=== PATIENT | female | born 1980 | race Caucasian/White ===

== ENCOUNTER 2016-09-12 14:03 | Emergency (ER) | payer OTHER ==
[2016-09-12 16:02] LABS: BASO # 0.1 K/mm3 (0.0-0.2); BASO % 0.8 % (0.0-1.0); EOS # 0.2 K/mm3 (0.0-0.50); EOS % 2.2 % (0.0-3.0); LARGE UNSTAINED CELL # 0.1 K/mm3 (0.0-0.4); LARGE UNSTAINED CELL % 1.4 % (0.0-4.0); LYMPH # 2.5 K/mm3 (1.5-4.5); LYMPH % 25.3 % (24.0-44.0); MEAN CORPUSCULAR HEMOGLOBIN 28.8 pg (27.0-33.0); MEAN CORPUSCULAR VOLUME 87.5 fl (80.0-96.0); MONO # 0.3 K/mm3 (0.0-0.8); MONO % 3.4 % (0.0-5.0); NEUTROPHILS # 6.2 K/mm3 (1.8-7.7); NEUTROPHILS % 66.9 % (36.0-66.0); PLATELET COUNT, AUTOMATED 369 k/mm3 (150-450); RED CELL DISTRIBUTION WIDTH 15.3 % (11.5-14.5); WHITE BLOOD COUNT 9.2 K/mm3 (4.0-10.0)
--- NOTE | 2016-09-12 17:03 | REP ---
Clinical: Early with vaginal bleeding. Technique: Transabdominal pelvic ultrasound followed by transvaginal examination with color Doppler evaluation of the maternal ovaries and gestation. Findings: Anteverted uterus measures 9.1 x 4.1 x 5.0 cm. An empty gestational sac is identified measuring 6 mm mean sac diameter correlating to 4 weeks 4 days gestational age. No pole or yolk sac is identified and the gestational sac was noted to be moving within the endometrial canal. Small amount of hemorrhagic debris/clot is identified in the endocervical canal. Findings are most compatible with spontaneous in progress. Maternal ovaries are normal in appearance and vascularity without torsion. Right maternal ovary measures 1.9 x 1.4 x 1.7 cm; RI equal 0.65. Left maternal ovary measures 3.2 x 2.2 x 2.2 cm with 1.2 cm corpus luteal cyst; RI equal 0.53. No pelvic fluid or adnexal mass lesion. Impression: Empty gestational sac moving within the endocervical canal along with small amount of hemorrhagic debris/clot. Findings are most compatible with spontaneous in progress. Correlation with serial HCG levels recommended. Signed by Brian Preciado MD 09/12/2016 04:55 P
--- NOTE | 2016-09-12 18:30 | EDDOCDS ---
Physician Documentation [facility] Name: Zonia Bright Age: 35 yrs Sex: Female : 1980 Arrival Date: 09/12/2016 Time: 14:03 Bed I1 / M1 Private MD: Other - Complete Info On Cds Disposition: 09/12/16 18:08 Discharged to Home/Self Care. Impression: Threatened . - Condition is Stable. - Discharge Instructions: Threatened Miscarriage, Pelvic Rest. - Medication Reconciliation, Local Pharmacy Hours form. - Follow up: [facility]; When: Tomorrow; Reason: Recheck today's complaints, Continuance of care. - Problem is new. - Symptoms have improved. - Notes: CALL [facility] TOMORROW TO SCHEDULE AN APPOINTMENT ON 09/15/16, GO TO [facility] TO HAVE HORMONE REDRAWN ON THE AFTERNOON OF 09/14/16, IF CONCERNING SYMPTOMS OR BLEEDING HEAVIER THAN I PAD PER HOUR OCCURS, RETURN TO THE ER, YOUR CASE WAS DISCUSSED WITH DR KIET AT [facility] [place] Historical: - Allergies: no known allergies; - Home Meds: 1. blood pressure medication Unknown daily - PMHx: Hypertension; - PSHx: ; - Social history: Smoking status: Patient/guardian denies using Their [place] language is Urdu. - Family history: Not pertinent. - : The pt / caregiver states he / she is not on anticoagulants. Home medication list is obtained from the patient, Unable to Verify Home Med List with the patient / caregiver. - Exposure Risk Screening:: None identified. CHANGE ADVISOR: 09/12 14:31 2, Full Term 1, Premature 0, 0, Living 1, LMP 07/21/2016, dls Verified, EDC 04/27/2017, Gestational age from LMP: 7 weeks 4 days Vital Signs: 14:06 BP 147 / 81; Pulse 68; Resp 18 S; Temp 96.2(O); Pulse Ox 100% on R/A; Weight 100.7 kg / gr2 222.01 lbs (M); Height 5 ft. 5 in. (165.10 cm) (M); Pain 3/10; 18:12 BP 140 / 73; Pulse 62; Resp 18; Temp 97.2; Pulse Ox 99% ; Pain 0/10; jam1 14:06 Body Mass Index 36.94 (100.70 kg, 165.10 cm) gr2 MDM: 15:19 Undress patient appropriately for examination ordered. ar2 15:19 Set up pelvic ordered. ar2 15:36 CBC with Diff Ordered. EDMS 15:36 Hcg, Serum Quantitative Ordered. EDMS 15:36 UA Ordered. EDMS 15:36 Urine Culture Ordered. EDMS 15:36 Rh Only Ordered. EDMS 15:36 Wet Prep Ordered. EDMS 15:36 GC & Chlamydia Amplification Ordered. EDMS 16:07 Financial registration complete. gjb 16:13 [facility] Payment Agreement was scanned into [employer] and attached to record. gjb 16:17 CBC with Diff Reviewed. ck7 16:17 Hcg, Serum Quantitative Reviewed. ck7 16:17 Rh Only Reviewed. ck7 16:17 Wet Prep Reviewed. ck7 16:17 IV Saline Lock ordered. ck7 16:17 NS 0.9% 1000 ml IV at bolus once ordered. ck7 16:18 US 1st trimester Ordered. EDMS 16:31 DUPLEX SCAN LIMITED (DOPPLER) Ordered. EDMS 16:31 TRANSVAGINAL US Ordered. EDMS 16:51 UA Reviewed. ck7 17:45 US 1st trimester Reviewed. ck7 18:06 GC & Chlamydia Amplification Reviewed. ck7 Administered Medications: 16:52 Drug: NS 0.9% 1000 ml Route: IV; Rate: bolus; Site: right forearm; [facility] Signatures: Dispatcher [employer] [place]V Jennifer Nicolas, Parth Fernandes RN, PA-C PAMariellaC ar2 Zarina Latham RN RN [facility] Anival Pugh RPA-C RPA-Leonarda Jacobs The chart was reviewed and I authenticate all verbal orders and agree with the evaluation and treatment provided.Attachments: 16:13 [facility] [place] gjb MTDD
--- NOTE | 2016-09-12 18:31 | EDDOCDS ---
Nurse's Notes [facility] Name: Zonia Bright Age: 35 yrs Sex: Female : 1980 Arrival Date: 09/12/2016 Time: 14:03 Bed I1 / M1 Private MD: Other - Complete Info On Cds Diagnosis: Threatened Presentation: 09/12 14:26 Presenting complaint: Patient states: Pt presents with red vaginal bleeding on tissue dls when she wipes started one hour ago denies abdominal cramping pt is about 8 weeks has not had any care yet. Risk factors: The patient reports no loss of conciousness prior to arrival. This patient has not had a hysterectomy. This patient has not begun menopause. Adult Sepsis Screening: The patient does not have new or worsening altered mentation. Patient's respiratory rate is less than 22. Systolic blood pressure is greater than 100. Patient has a qSOFA score of 0- Negative Sepsis Screen. Suicide/Homicide risk assessment- the patient denies having any suicidal and/or homicidal ideations and does not present with any other emotional, behavioral or mental health complaints. Status: Patient is not a health services information specialist or dependent. Transition of care: patient was not received from another setting of care. 14:26 Acuity: VIMAL Level 3 dls 14:26 Method Of Arrival: Walkin/Carried/Asstd dls Triage Assessment: 14:31 General: Appears in no apparent distress, well developed, well nourished, well groomed, dls Behavior is cooperative. Pain: Pain currently is 4 out of 10 on a pain scale. Pt Declines HIV testing. : Reports vaginal bleeding that is bright red since one hour. STEEP TENDER: 14:31 2, Full Term 1, Premature 0, 0, Living 1, LMP 07/21/2016, dls Verified, EDC 04/27/2017, Gestational age from LMP: 7 weeks 4 days Historical: - Allergies: no known allergies; - Home Meds: 1. blood pressure medication Unknown daily - PMHx: Hypertension; - PSHx: ; - Social history: Smoking status: Patient/guardian denies using Their [place] language is Yakut. - Family history: Not pertinent. - : The pt / caregiver states he / she is not on anticoagulants. Home medication list is obtained from the patient, Unable to Verify Home Med List with the patient / caregiver. - Exposure Risk Screening:: None identified. Screenin:51 Screening information is obtained from the patient. Primary language is German. Fall jam1 risk: No risks identified. Assistance ADL's: requires no assistance with activities of daily living. Abuse/DV Screen: The patient / caregiver reports he/she is: not in a situation that causes fear, pain or injury. Nutritional screening: No deficits noted. Advance Directives: Currently, there is no health care proxy. There is no active DNR order. There is no living will. There is no Power of Concession Manager. Advance directive information has not previously been placed in an [facility] medical record. Further advance directive information is declined. home support is adequate. Assessment: 16:53 General: Appears in no apparent distress, comfortable, Behavior is appropriate for age, [facility] cooperative. General: returned from ultrasound, tolerated well. : Urine is blood tinged. 17:30 General: Appears in no apparent distress, comfortable, Behavior is appropriate for age, [facility] cooperative. Pain: Denies pain. Respiratory: Airway is patent Respiratory effort is even, unlabored, Respiratory pattern is regular, symmetrical. : Reports vaginal bleeding that is moderate flow. Derm: Skin is pink, warm & dry. Vital Signs: 14:06 BP 147 / 81; Pulse 68; Resp 18 S; Temp 96.2(O); Pulse Ox 100% on R/A; Weight 100.7 kg gr2 (M); Height 5 ft. 5 in. (165.10 cm) (M); Pain 3/10; 18:12 BP 140 / 73; Pulse 62; Resp 18; Temp 97.2; Pulse Ox 99% ; Pain 0/10; jam1 14:06 Body Mass Index 36.94 (100.70 kg, 165.10 cm) gr2 Vitals: 14:06 Log In Time: September 12, 2016 at 14:06. gr2 ED Course: 14:05 Patient visited by Esmer Valverde. gr2 14:05 Other - Complete Info On Cds is Private Physician. gr2 14:05 Patient moved to Waiting gr2 14:07 Patient visited by Esmer Valverde. gr2 14:07 Patient moved to Pre RCE gr2 14:29 Triage Initiated dls 15:12 Patient moved to Triage 3 kcs 15:19 Parth Arambula PA-C is PHCP. ar2 15:19 Bozena Sargent MD is Attending Physician. ar2 15:19 Patient visited by Parth Arambula PA-C. ar2 15:20 Patient moved to I1 / M1 ct3 15:46 GC & Chlamydia Amplification Sent. jam1 15:46 Wet Prep Sent. jam1 15:46 Rh Only Sent. jam1 15:46 Urine Culture Sent. jam1 15:46 UA Sent. jam1 15:46 Hcg, Serum Quantitative Sent. jam1 15:46 CBC with Diff Sent. jam1 16:13 [facility] Payment Agreement was scanned into [employer] and attached to record. gjb 16:16 Pt greeted and oriented to ED. Patient advised of names of staff involved in care, jam1 location of call sparrow, wait times and NPO status. Patient has correct armband on for positive identification. Placed in gown. Bed in low position. Call light in reach. Side rails up X 1. Adult w/ patient. Door closed. 16:17 PHCP role handed off by Parth Arambula PA-C ck7 16:17 Anival Pugh RPA-C is PHCP. ck7 16:17 Patient visited by Anival Pugh RPA-C. ck7 16:51 Patient visited by Anival Pugh RPA-C. ck7 16:53 Patient has correct armband on for positive identification. Bed in low position. Call jam1 light in reach. Side rails up X 1. Door closed. 16:53 The patient / caregiver is instructed regarding the plan of care and ED course. [facility] 16:53 Inserted saline lock: 20 gauge in right forearm. [facility] 17:26 US 1st trimester Returned. EDMS 17:30 Discontinued lock intact, bleeding controlled, pressure dressing applied, No [facility] redness/swelling at site. No procedures done that require assistance. 17:32 Patient visited by Anival Pugh RPA-C. ck7 18:06 Patient visited by Anival Pugh RPA-C. ck7 18:08 Torsten Gonzalez OB is Referral Physician. ck7 Administered Medications: 16:52 Drug: NS 0.9% 1000 ml Route: IV; Rate: bolus; Site: right forearm; [facility] Order Results: Lab Order: CBC with Diff; SPEC'M 09/12/16 15:38 Test: WHITE BLOOD COUNT; Value: 9.2; Range: 4.0-10.0; Units: K/mm3; Status: F Test: RED BLOOD COUNT; Value: 4.93; Range: 4.00-5.40; Units: M/mm3; Status: F Test: HEMOGLOBIN; Value: 14.2; Range: 12.0-16.0; Units: g/dl; Status: F Test: HEMATOCRIT; Value: 43.1; Range: 36.0-47.0; Units: %; Status: F Test: MEAN CORPUSCULAR VOLUME; Value: 87.5; Range: 80.0-96.0; Units: fl; Status: F Test: MEAN CORPUSCULAR HEMOGLOBIN; Value: 28.8; Range: 27.0-33.0; Units: pg; Status: F Test: MEAN CORPUSCULAR HGB CONC; Value: 33.0; Range: 32.0-36.5; Units: g/dl; Status: F Test: RED CELL DISTRIBUTION WIDTH; Value: 15.3; Range: 11.5-14.5; Abnormal: Above high normal; Units: %; Status: F Test: PLATELET COUNT, AUTOMATED; Value: 369; Range: 150-450; Units: k/mm3; Status: F Test: NEUTROPHILS %; Value: 66.9; Range: 36.0-66.0; Abnormal: Above high normal; Units: %; Status: F Test: LYMPH %; Value: 25.3; Range: 24.0-44.0; Units: %; Status: F Test: MONO %; Value: 3.4; Range: 0.0-5.0; Units: %; Status: F Test: EOS %; Value: 2.2; Range: 0.0-3.0; Units: %; Status: F Test: BASO %; Value: 0.8; Range: 0.0-1.0; Units: %; Status: F Test: LARGE UNSTAINED CELL %; Value: 1.4; Range: 0.0-4.0; Units: %; Status: F Test: NEUTROPHILS #; Value: 6.2; Range: 1.8-7.7; Units: K/mm3; Status: F Test: LYMPH #; Value: 2.5; Range: 1.5-4.5; Units: K/mm3; Status: F Test: MONO #; Value: 0.3; Range: 0.0-0.8; Units: K/mm3; Status: F Test: EOS #; Value: 0.2; Range: 0.0-0.50; Units: K/mm3; Status: F Test: BASO #; Value: 0.1; Range: 0.0-0.2; Units: K/mm3; Status: F Test: LARGE UNSTAINED CELL #; Value: 0.1; Range: 0.0-0.4; Units: K/mm3; Status: F Lab Order: Hcg, Serum Quantitative; SPEC'M 09/12/16 15:38 Test: HCG, SERUM QUANTITATIVE; Value: 680; Units: MIU/ML; Status: F Test Note: ; GESTATIONAL AGE APPROXIMATE HCG RANGE (MIU/ML) 0.2-1 WEEK 5-50 1-2 WEEKS 50-500 2-3 WEEKS 100-5,000 3-4 WEEKS 500-10,000 4-5 WEEKS 1,000-50,000 5-6 WEEKS 10,000-100,000 6-8 WEEKS 15,000-200,000 2-3 MONTHS 10,000-100,000 NON FEMALES LESS THAN 3.0 Patient samples may contain human heterophilic antibodies that could react with immunoassays to give falsely elevated or depressed results. This assay has been designed to minimize interference from heterophilic antibodies. Elevated hCG levels have also been associated with trophoblastic disease and nontrophoblastic neoplasms. The possibility of having these diseases should be considered before a diagnosis of is made. This test is not intended for use as a surrogate marker for aiding in the diagnosis or monitoring the treatment of cancer patients. [employer] methodology. Lab Order: UA; SPEC'M 09/12/16 15:38 Test: APPEARANCE, URINE; Value: HAZY; Range: CLEAR; Status: F Test: COLOR, URINE; Value: YELLOW; Range: YELLOW; Status: F Test: PH,URINE; Value: 5.0; Range: 5.0-9.0; Units: UNITS; Status: F Test: SPECIFIC GRAVITY URINE AUTO; Value: 1.006; Range: 1.002-1.035; Status: F Test: PROTEIN, URINE AUTO; Value: 1+; Range: NEGATIVE; Abnormal: Above high normal; Units: mg/dL; Status: F Test: GLUCOSE, URINE (UA) AUTO; Value: NEGATIVE; Range: NEGATIVE; Units: mg/dL; Status: F Test: KETONE, URINE AUTO; Value: NEGATIVE; Range: NEGATIVE; Units: mg/dL; Status: F Test: UROBILINOGEN, URINE AUTO; Value: 0.2; Range: 0.0-2.0; Units: mg/dL; Status: F Test: BILIRUBIN, URINE AUTO; Value: NEGATIVE; Range: NEGATIVE; Status: F Test: NITRITE, URINE AUTO; Value: NEGATIVE; Range: NEGATIVE; Status: F Test: LEUKOCYTE ESTERASE, URINE AUTO; Value: NEGATIVE; Range: NEGATIVE; Status: F Test: BLOOD, URINE BLOOD; Value: 3+; Range: NEGATIVE; Abnormal: Above high normal; Status: F Test: WBC, URINE AUTO; Value: 19; Range: 0-3; Abnormal: Above high normal; Units: /HPF; Status: F Test: RBC, URINE AUTO; Value: TNTC; Range: 0-3; Abnormal: Above high normal; Units: /HPF; Status: F Test: BACTERIA, URINE AUTO; Value: 1+; Range: NEGATIVE; Abnormal: Above high normal; Status: F Test: SQUAMOUS EPITHELIAL CELL UR AU; Value: 5; Range: 0-6; Units: /HPF; Status: F Test: MUCUS, URINE; Value: SMALL; Range: NEGATIVE; Status: F Test: HYALINE CAST, URINE AUTO; Value: 0; Range: 0-1; Units: /LPF; Status: F Test: AMORPHOUS SEDIMENT; Value: SMALL; Range: NEGATIVE; Abnormal: Above high normal; Status: F Lab Order: Rh Only; SPEC'M 09/12/16 15:38 Test: RH; Value: POSITIVE; Status: F Lab Order: Wet Prep; SPEC'M 09/12/16 15:38 Test: WET PREP; Value: WET PREP RESULT; Status: F Test: WET PREP; Value: MANY RBC; Status: F Test: WET PREP; Value: FEW WBC; Status: F Test: WET PREP; Value: FEW EPITHELIAL CELLS PRESENT; Status: F Lab Order: GC & Chlamydia Amplification; SPEC'M 09/12/16 15:38 Test: CHLAMYDIA DNA AMPLIFICATION; Value: NEGATIVE; Range: NEGATIVE; Status: F Test: GC DNA AMPLIFICATION; Value: NEGATIVE; Range: NEGATIVE; Status: F Radiology Order: US 1st trimester Test: US 1st trimester REASON FOR EXAMINATION: Bleeding; Clinical: Early with vaginal bleeding.; ; Technique: Transabdominal pelvic ultrasound followed by transvaginal examination; with color Doppler evaluation of the maternal ovaries and gestation.; ; Findings:; Anteverted uterus measures 9.1 x 4.1 x 5.0 cm. An empty gestational sac is; identified measuring 6 mm mean sac diameter correlating to 4 weeks 4 days; gestational age. No pole or yolk sac is identified and the gestational sac; was noted to be moving within the endometrial canal. Small amount of hemorrhagic; debris/clot is identified in the endocervical canal. Findings are most; compatible with spontaneous in progress. Maternal ovaries are normal in; appearance and vascularity without torsion. Right maternal ovary measures 1.9 x; 1.4 x 1.7 cm; RI equal 0.65. Left maternal ovary measures 3.2 x 2.2 x 2.2 cm; with 1.2 cm corpus luteal cyst; RI equal 0.53. No pelvic fluid or adnexal mass; lesion.; ; Impression:; Empty gestational sac moving within the endocervical canal along with small; amount of hemorrhagic debris/clot. Findings are most compatible with spontaneous; in progress. Correlation with serial HCG levels recommended.; ; ; ; ; Signed by; Brian Preciado MD 09/12/2016 04:55 P; Outcome: 17:30 Discharge Assessment: Patient awake, alert and oriented x 3. No cognitive and/or [facility] functional deficits noted. Patient verbalized understanding of disposition instructions. patient administered narcotics - no. The following High Risk Discharge criteria are identified: None. Discharged to home ambulatory, with family, with significant other. Condition: good Condition: stable Condition: improved. Discharge instructions given to patient, Instructed on discharge instructions, follow up and referral plans. Demonstrated understanding of instructions, medications, Pt was receptive of discharge instructions/ teaching. Ultrasound Study completed. Property :Personal belongings accompany Pt. 18:08 Discharge ordered by Provider. ck7 18:30 Patient left the ED. [facility] Signatures: Dispatcher [employer] EDMS Amanda Flowers, RN RN Jennifer Elliott RN RN dls Murphy, Jane, PERL SOFTWARE ENGINEER PERL SOFTWARE ENGINEER jam1 Parth Arambula, PA-C PA-C ar2 Vivian Sauceda, PERL SOFTWARE ENGINEER PERL SOFTWARE ENGINEER ct3 Zarina Latham,GABI RN [facility] Anival Pugh, RPA-C RPA-Cck7 Esmer Valverde gr2 Leonarda Bearden MTDD
--- NOTE | 2016-09-14 20:34 | EDDOCDS ---
Nurse's Notes [facility] Name: Zonia Bright Age: 35 yrs Sex: Female : 1980 Arrival Date: 09/12/2016 Time: 14:03 Bed I1 / M1 Private MD: Other - Complete Info On Cds Diagnosis: Threatened Presentation: 09/12 14:26 Presenting complaint: Patient states: Pt presents with red vaginal bleeding on tissue dls when she wipes started one hour ago denies abdominal cramping pt is about 8 weeks has not had any care yet. Risk factors: The patient reports no loss of conciousness prior to arrival. This patient has not had a hysterectomy. This patient has not begun menopause. Adult Sepsis Screening: The patient does not have new or worsening altered mentation. Patient's respiratory rate is less than 22. Systolic blood pressure is greater than 100. Patient has a qSOFA score of 0- Negative Sepsis Screen. Suicide/Homicide risk assessment- the patient denies having any suicidal and/or homicidal ideations and does not present with any other emotional, behavioral or mental health complaints. Status: Patient is not a fiscal services director or dependent. Transition of care: patient was not received from another setting of care. 14:26 Acuity: VIMAL Level 3 dls 14:26 Method Of Arrival: Walkin/Carried/Asstd dls Triage Assessment: 14:31 General: Appears in no apparent distress, well developed, well nourished, well groomed, dls Behavior is cooperative. Pain: Pain currently is 4 out of 10 on a pain scale. Pt Declines HIV testing. : Reports vaginal bleeding that is bright red since one hour. STITCHDOWNS TOE FORMER: 14:31 2, Full Term 1, Premature 0, 0, Living 1, LMP 07/21/2016, dls Verified, EDC 04/27/2017, Gestational age from LMP: 7 weeks 4 days Historical: - Allergies: no known allergies; - Home Meds: 1. blood pressure medication Unknown daily - PMHx: Hypertension; - PSHx: ; - Social history: Smoking status: Patient/guardian denies using Their [place] language is Khmer. - Family history: Not pertinent. - : The pt / caregiver states he / she is not on anticoagulants. Home medication list is obtained from the patient, Unable to Verify Home Med List with the patient / caregiver. - Exposure Risk Screening:: None identified. Screenin:51 Screening information is obtained from the patient. Primary language is Swedish. Fall jam1 risk: No risks identified. Assistance ADL's: requires no assistance with activities of daily living. Abuse/DV Screen: The patient / caregiver reports he/she is: not in a situation that causes fear, pain or injury. Nutritional screening: No deficits noted. Advance Directives: Currently, there is no health care proxy. There is no active DNR order. There is no living will. There is no Power of Configuration Analyst. Advance directive information has not previously been placed in an [facility] medical record. Further advance directive information is declined. home support is adequate. Assessment: 16:53 General: Appears in no apparent distress, comfortable, Behavior is appropriate for age, [facility] cooperative. General: returned from ultrasound, tolerated well. : Urine is blood tinged. 17:30 General: Appears in no apparent distress, comfortable, Behavior is appropriate for age, [facility] cooperative. Pain: Denies pain. Respiratory: Airway is patent Respiratory effort is even, unlabored, Respiratory pattern is regular, symmetrical. : Reports vaginal bleeding that is moderate flow. Derm: Skin is pink, warm & dry. Vital Signs: 14:06 BP 147 / 81; Pulse 68; Resp 18 S; Temp 96.2(O); Pulse Ox 100% on R/A; Weight 100.7 kg gr2 (M); Height 5 ft. 5 in. (165.10 cm) (M); Pain 3/10; 18:12 BP 140 / 73; Pulse 62; Resp 18; Temp 97.2; Pulse Ox 99% ; Pain 0/10; jam1 14:06 Body Mass Index 36.94 (100.70 kg, 165.10 cm) gr2 Vitals: 14:06 Log In Time: September 12, 2016 at 14:06. gr2 ED Course: 14:05 Patient visited by Esmer Valverde. gr2 14:05 Other - Complete Info On Cds is Private Physician. gr2 14:05 Patient moved to Waiting gr2 14:07 Patient visited by Esmer Valverde. gr2 14:07 Patient moved to Pre RCE gr2 14:29 Triage Initiated dls 15:12 Patient moved to Triage 3 kcs 15:19 Parth Arambula PA-C is PHCP. ar2 15:19 Bozena Sargent MD is Attending Physician. ar2 15:19 Patient visited by Parth Arambula PA-C. ar2 15:20 Patient moved to I1 / M1 ct3 15:46 GC & Chlamydia Amplification Sent. jam1 15:46 Wet Prep Sent. jam1 15:46 Rh Only Sent. jam1 15:46 Urine Culture Sent. jam1 15:46 UA Sent. jam1 15:46 Hcg, Serum Quantitative Sent. jam1 15:46 CBC with Diff Sent. jam1 16:13 [facility] [place] was scanned into [employer] and attached to record. gjb 16:16 Pt greeted and oriented to ED. Patient advised of names of staff involved in care, jam1 location of call sparrow, wait times and NPO status. Patient has correct armband on for positive identification. Placed in gown. Bed in low position. Call light in reach. Side rails up X 1. Adult w/ patient. Door closed. 16:17 PHCP role handed off by Parth Arambula PA-C ck7 16:17 Anival Pugh RPA-C is PHCP. ck7 16:17 Patient visited by Anival Pugh RPA-C. ck7 16:51 Patient visited by Anival Pugh RPA-C. ck7 16:53 Patient has correct armband on for positive identification. Bed in low position. Call jam1 light in reach. Side rails up X 1. Door closed. 16:53 The patient / caregiver is instructed regarding the plan of care and ED course. [facility] 16:53 Inserted saline lock: 20 gauge in right forearm. [facility] 17:26 US 1st trimester Returned. EDMS 17:30 Discontinued lock intact, bleeding controlled, pressure dressing applied, No [facility] redness/swelling at site. No procedures done that require assistance. 17:32 Patient visited by Anival Pugh RPA-C. 7 18:06 Patient visited by Anival Pugh RPA-C. ck7 18:08 Torsten Gonzalez OB is Referral Physician. ck7 09/13 06:00 T-Sheet-- Draft Copy was scanned into [employer] and attached to record. lja Administered Medications: 09/12 16:52 Drug: NS 0.9% 1000 ml Route: IV; Rate: bolus; Site: right forearm; [facility] Order Results: Lab Order: CBC with Diff; SPEC'M 09/12/16 15:38 Test: WHITE BLOOD COUNT; Value: 9.2; Range: 4.0-10.0; Units: K/mm3; Status: F Test: RED BLOOD COUNT; Value: 4.93; Range: 4.00-5.40; Units: M/mm3; Status: F Test: HEMOGLOBIN; Value: 14.2; Range: 12.0-16.0; Units: g/dl; Status: F Test: HEMATOCRIT; Value: 43.1; Range: 36.0-47.0; Units: %; Status: F Test: MEAN CORPUSCULAR VOLUME; Value: 87.5; Range: 80.0-96.0; Units: fl; Status: F Test: MEAN CORPUSCULAR HEMOGLOBIN; Value: 28.8; Range: 27.0-33.0; Units: pg; Status: F Test: MEAN CORPUSCULAR HGB CONC; Value: 33.0; Range: 32.0-36.5; Units: g/dl; Status: F Test: RED CELL DISTRIBUTION WIDTH; Value: 15.3; Range: 11.5-14.5; Abnormal: Above high normal; Units: %; Status: F Test: PLATELET COUNT, AUTOMATED; Value: 369; Range: 150-450; Units: k/mm3; Status: F Test: NEUTROPHILS %; Value: 66.9; Range: 36.0-66.0; Abnormal: Above high normal; Units: %; Status: F Test: LYMPH %; Value: 25.3; Range: 24.0-44.0; Units: %; Status: F Test: MONO %; Value: 3.4; Range: 0.0-5.0; Units: %; Status: F Test: EOS %; Value: 2.2; Range: 0.0-3.0; Units: %; Status: F Test: BASO %; Value: 0.8; Range: 0.0-1.0; Units: %; Status: F Test: LARGE UNSTAINED CELL %; Value: 1.4; Range: 0.0-4.0; Units: %; Status: F Test: NEUTROPHILS #; Value: 6.2; Range: 1.8-7.7; Units: K/mm3; Status: F Test: LYMPH #; Value: 2.5; Range: 1.5-4.5; Units: K/mm3; Status: F Test: MONO #; Value: 0.3; Range: 0.0-0.8; Units: K/mm3; Status: F Test: EOS #; Value: 0.2; Range: 0.0-0.50; Units: K/mm3; Status: F Test: BASO #; Value: 0.1; Range: 0.0-0.2; Units: K/mm3; Status: F Test: LARGE UNSTAINED CELL #; Value: 0.1; Range: 0.0-0.4; Units: K/mm3; Status: F Lab Order: Hcg, Serum Quantitative; SPEC'M 09/12/16 15:38 Test: HCG, SERUM QUANTITATIVE; Value: 680; Units: MIU/ML; Status: F Test Note: ; GESTATIONAL AGE APPROXIMATE HCG RANGE (MIU/ML) 0.2-1 WEEK 5-50 1-2 WEEKS 50-500 2-3 WEEKS 100-5,000 3-4 WEEKS 500-10,000 4-5 WEEKS 1,000-50,000 5-6 WEEKS 10,000-100,000 6-8 WEEKS 15,000-200,000 2-3 MONTHS 10,000-100,000 NON FEMALES LESS THAN 3.0 Patient samples may contain human heterophilic antibodies that could react with immunoassays to give falsely elevated or depressed results. This assay has been designed to minimize interference from heterophilic antibodies. Elevated hCG levels have also been associated with trophoblastic disease and nontrophoblastic neoplasms. The possibility of having these diseases should be considered before a diagnosis of is made. This test is not intended for use as a surrogate marker for aiding in the diagnosis or monitoring the treatment of cancer patients. [employer] methodology. Lab Order: UA; SPEC'M 09/12/16 15:38 Test: APPEARANCE, URINE; Value: HAZY; Range: CLEAR; Status: F Test: COLOR, URINE; Value: YELLOW; Range: YELLOW; Status: F Test: PH,URINE; Value: 5.0; Range: 5.0-9.0; Units: UNITS; Status: F Test: SPECIFIC GRAVITY URINE AUTO; Value: 1.006; Range: 1.002-1.035; Status: F Test: PROTEIN, URINE AUTO; Value: 1+; Range: NEGATIVE; Abnormal: Above high normal; Units: mg/dL; Status: F Test: GLUCOSE, URINE (UA) AUTO; Value: NEGATIVE; Range: NEGATIVE; Units: mg/dL; Status: F Test: KETONE, URINE AUTO; Value: NEGATIVE; Range: NEGATIVE; Units: mg/dL; Status: F Test: UROBILINOGEN, URINE AUTO; Value: 0.2; Range: 0.0-2.0; Units: mg/dL; Status: F Test: BILIRUBIN, URINE AUTO; Value: NEGATIVE; Range: NEGATIVE; Status: F Test: NITRITE, URINE AUTO; Value: NEGATIVE; Range: NEGATIVE; Status: F Test: LEUKOCYTE ESTERASE, URINE AUTO; Value: NEGATIVE; Range: NEGATIVE; Status: F Test: BLOOD, URINE BLOOD; Value: 3+; Range: NEGATIVE; Abnormal: Above high normal; Status: F Test: WBC, URINE AUTO; Value: 19; Range: 0-3; Abnormal: Above high normal; Units: /HPF; Status: F Test: RBC, URINE AUTO; Value: TNTC; Range: 0-3; Abnormal: Above high normal; Units: /HPF; Status: F Test: BACTERIA, URINE AUTO; Value: 1+; Range: NEGATIVE; Abnormal: Above high normal; Status: F Test: SQUAMOUS EPITHELIAL CELL UR AU; Value: 5; Range: 0-6; Units: /HPF; Status: F Test: MUCUS, URINE; Value: SMALL; Range: NEGATIVE; Status: F Test: HYALINE CAST, URINE AUTO; Value: 0; Range: 0-1; Units: /LPF; Status: F Test: AMORPHOUS SEDIMENT; Value: SMALL; Range: NEGATIVE; Abnormal: Above high normal; Status: F Lab Order: Urine Culture; SPEC'M 09/12/16 15:38 Test: URINE CULTURE; Value: URINE CULTURE RESULT SPECIMEN APPEARS CONTAMINATED; Status: F Lab Order: Rh Only; SPEC'M 09/12/16 15:38 Test: RH; Value: POSITIVE; Status: F Lab Order: Wet Prep; SPEC'M 09/12/16 15:38 Test: WET PREP; Value: WET PREP RESULT; Status: F Test: WET PREP; Value: MANY RBC; Status: F Test: WET PREP; Value: FEW WBC; Status: F Test: WET PREP; Value: FEW EPITHELIAL CELLS PRESENT; Status: F Lab Order: GC & Chlamydia Amplification; SPEC'M 09/12/16 15:38 Test: CHLAMYDIA DNA AMPLIFICATION; Value: NEGATIVE; Range: NEGATIVE; Status: F Test: GC DNA AMPLIFICATION; Value: NEGATIVE; Range: NEGATIVE; Status: F Radiology Order: US 1st trimester Test: US 1st trimester REASON FOR EXAMINATION: Bleeding; Clinical: Early with vaginal bleeding.; ; Technique: Transabdominal pelvic ultrasound followed by transvaginal examination; with color Doppler evaluation of the maternal ovaries and gestation.; ; Findings:; Anteverted uterus measures 9.1 x 4.1 x 5.0 cm. An empty gestational sac is; identified measuring 6 mm mean sac diameter correlating to 4 weeks 4 days; gestational age. No pole or yolk sac is identified and the gestational sac; was noted to be moving within the endometrial canal. Small amount of hemorrhagic; debris/clot is identified in the endocervical canal. Findings are most; compatible with spontaneous in progress. Maternal ovaries are normal in; appearance and vascularity without torsion. Right maternal ovary measures 1.9 x; 1.4 x 1.7 cm; RI equal 0.65. Left maternal ovary measures 3.2 x 2.2 x 2.2 cm; with 1.2 cm corpus luteal cyst; RI equal 0.53. No pelvic fluid or adnexal mass; lesion.; ; Impression:; Empty gestational sac moving within the endocervical canal along with small; amount of hemorrhagic debris/clot. Findings are most compatible with spontaneous; in progress. Correlation with serial HCG levels recommended.; ; ; ; ; Signed by; Brian Preciado MD 09/12/2016 04:55 P; Outcome: 17:30 Discharge Assessment: Patient awake, alert and oriented x 3. No cognitive and/or h functional deficits noted. Patient verbalized understanding of disposition instructions. patient administered narcotics - no. The following High Risk Discharge criteria are identified: None. Discharged to home ambulatory, with family, with significant other. Condition: good Condition: stable Condition: improved. Discharge instructions given to patient, Instructed on discharge instructions, follow up and referral plans. Demonstrated understanding of instructions, medications, Pt was receptive of discharge instructions/ teaching. Ultrasound Study completed. Property :Personal belongings accompany Pt. 18:08 Discharge ordered by Provider. ck7 18:30 Patient left the ED. [facility] Signatures: Dispatcher [employer] EDAmanda Reyes, RN RN Jennifer Elliott RN RN dls Murphy, Jane, LINE MAINTENANCE TECHNICIAN LINE MAINTENANCE TECHNICIAN jam1 Parth Arambula, PA-C PA-C ar2 Vivian Sauceda, LINE MAINTENANCE TECHNICIAN LINE MAINTENANCE TECHNICIAN ct3 Zarina Latham RN RN [facility] Anival Pugh, RPA-C RPA-Cck7 Esmer Valverde gr2 Arel, Leonarda Villatoro Chart Complete MTDD
--- NOTE | 2016-09-14 20:34 | EDDOCDS ---
Physician Documentation [facility] Name: Zonia Bright Age: 35 yrs Sex: Female : 1980 Arrival Date: 09/12/2016 Time: 14:03 Bed I1 / M1 Private MD: Other - Complete Info On Cds Disposition: 09/12/16 18:08 Discharged to Home/Self Care. Impression: Threatened . - Condition is Stable. - Discharge Instructions: Threatened Miscarriage, Pelvic Rest. - Medication Reconciliation, Local Pharmacy Hours form. - Follow up: OB Portal; When: Tomorrow; Reason: Recheck today's complaints, Continuance of care. - Problem is new. - Symptoms have improved. - Notes: CALL [facility] TOMORROW TO SCHEDULE AN APPOINTMENT ON 09/15/16, GO TO [facility] TO HAVE HORMONE REDRAWN ON THE AFTERNOON OF 09/14/16, IF CONCERNING SYMPTOMS OR BLEEDING HEAVIER THAN I PAD PER HOUR OCCURS, RETURN TO THE ER, YOUR CASE WAS DISCUSSED WITH DR KIET AT [facility] Historical: - Allergies: no known allergies; - Home Meds: 1. blood pressure medication Unknown daily - PMHx: Hypertension; - PSHx: ; - Social history: Smoking status: Patient/guardian denies using Their [place] language is Sinhala. - Family history: Not pertinent. - : The pt / caregiver states he / she is not on anticoagulants. Home medication list is obtained from the patient, Unable to Verify Home Med List with the patient / caregiver. - Exposure Risk Screening:: None identified. MAP CLERK: 09/12 14:31 2, Full Term 1, Premature 0, 0, Living 1, LMP 07/21/2016, dls Verified, EDC 04/27/2017, Gestational age from LMP: 7 weeks 4 days Vital Signs: 14:06 BP 147 / 81; Pulse 68; Resp 18 S; Temp 96.2(O); Pulse Ox 100% on R/A; Weight 100.7 kg / gr2 222.01 lbs (M); Height 5 ft. 5 in. (165.10 cm) (M); Pain 3/10; 18:12 BP 140 / 73; Pulse 62; Resp 18; Temp 97.2; Pulse Ox 99% ; Pain 0/10; jam1 14:06 Body Mass Index 36.94 (100.70 kg, 165.10 cm) gr2 MDM: 15:19 Undress patient appropriately for examination ordered. ar2 15:19 Set up pelvic ordered. ar2 15:36 CBC with Diff Ordered. EDMS 15:36 Hcg, Serum Quantitative Ordered. EDMS 15:36 UA Ordered. EDMS 15:36 Urine Culture Ordered. EDMS 15:36 Rh Only Ordered. EDMS 15:36 Wet Prep Ordered. EDMS 15:36 GC & Chlamydia Amplification Ordered. EDMS 16:07 Financial registration complete. gjb 16:13 [facility] Payment Agreement was scanned into [employer] and attached to record. gjb 16:17 CBC with Diff Reviewed. ck7 16:17 Hcg, Serum Quantitative Reviewed. ck7 16:17 Rh Only Reviewed. ck7 16:17 Wet Prep Reviewed. ck7 16:17 IV Saline Lock ordered. ck7 16:17 NS 0.9% 1000 ml IV at bolus once ordered. ck7 16:18 US 1st trimester Ordered. EDMS 16:31 DUPLEX SCAN LIMITED (DOPPLER) Ordered. EDMS 16:31 TRANSVAGINAL US Ordered. EDMS 16:51 UA Reviewed. ck7 17:45 US 1st trimester Reviewed. ck7 18:06 GC & Chlamydia Amplification Reviewed. ck7 09/13 06:00 T-Sheet-- Draft Copy was scanned into [employer] and attached to record. юлияa Administered Medications: 09/12 16:52 Drug: NS 0.9% 1000 ml Route: IV; Rate: bolus; Site: right forearm; [facility] Signatures: Dispatcher [employer] Jennifer Diaz RN RN dls Robertshaw, Aaron, PA-C PA-C ar2 Hafner, Jane, RN RN [facility] Anival Pugh RPA-C RPA-Cck7 Areheath, Leonarda Villatoro The chart was reviewed and I authenticate all verbal orders and agree with the evaluation and treatment provided.Attachments: 16:13 [facility] Payment Agreement gjb 09/13 06:00 T-Sheet-- Draft Copy sly Chart Complete MTDD
--- NOTE | 2016-09-14 20:34 | EDDOCDS ---
Physician Documentation [facility] Name: Zonia Bright Age: 35 yrs Sex: Female : 1980 Arrival Date: 09/12/2016 Time: 14:03 Bed I1 / M1 Private MD: Other - Complete Info On Cds Disposition: 09/12/16 18:08 Discharged to Home/Self Care. Impression: Threatened . - Condition is Stable. - Discharge Instructions: Threatened Miscarriage, Pelvic Rest. - Medication Reconciliation, Local Pharmacy Hours form. - Follow up: [facility]; When: Tomorrow; Reason: Recheck today's complaints, Continuance of care. - Problem is new. - Symptoms have improved. - Notes: CALL [facility] TOMORROW TO SCHEDULE AN APPOINTMENT ON 09/15/16, GO TO [facility] TO HAVE HORMONE REDRAWN ON THE AFTERNOON OF 09/14/16, IF CONCERNING SYMPTOMS OR BLEEDING HEAVIER THAN I PAD PER HOUR OCCURS, RETURN TO THE ER, YOUR CASE WAS DISCUSSED WITH DR KIET AT [facility] Historical: - Allergies: no known allergies; - Home Meds: 1. blood pressure medication Unknown daily - PMHx: Hypertension; - PSHx: ; - Social history: Smoking status: Patient/guardian denies using Their [place] language is Greenlandic. - Family history: Not pertinent. - : The pt / caregiver states he / she is not on anticoagulants. Home medication list is obtained from the patient, Unable to Verify Home Med List with the patient / caregiver. - Exposure Risk Screening:: None identified. 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 5 in. (165.10 cm) (M); Pain 3/10; 18:12 BP 140 / 73; Pulse 62; Resp 18; Temp 97.2; Pulse Ox 99% ; Pain 0/10; jam1 14:06 Body Mass Index 36.94 (100.70 kg, 165.10 cm) gr2 MDM: 15:19 Undress patient appropriately for examination ordered. ar2 15:19 Set up pelvic ordered. ar2 15:36 CBC with Diff Ordered. EDMS 15:36 Hcg, Serum Quantitative Ordered. EDMS 15:36 UA Ordered. EDMS 15:36 Urine Culture Ordered. EDMS 15:36 Rh Only Ordered. EDMS 15:36 Wet Prep Ordered. EDMS 15:36 GC & Chlamydia Amplification Ordered. EDMS 16:07 Financial registration complete. gjb 16:13 [facility] Payment Agreement was scanned into [email or web address] and attached to record. gjb 16:17 CBC with Diff Reviewed. ck7 16:17 Hcg, Serum Quantitative Reviewed. ck7 16:17 Rh Only Reviewed. ck7 16:17 Wet Prep Reviewed. ck7 16:17 IV Saline Lock ordered. ck7 16:17 NS 0.9% 1000 ml IV at bolus once ordered. ck7 16:18 US 1st trimester Ordered. EDMS 16:31 DUPLEX SCAN LIMITED (DOPPLER) Ordered. EDMS 16:31 TRANSVAGINAL US Ordered. EDMS 16:51 UA Reviewed. ck7 17:45 US 1st trimester Reviewed. ck7 18:06 GC & Chlamydia Amplification Reviewed. ck7 09/13 06:00 T-Sheet-- Draft Copy was scanned into [email or web address] and attached to record. юлияa Administered Medications: 09/12 16:52 Drug: NS 0.9% 1000 ml Route: IV; Rate: bolus; Site: right forearm; [facility] Signatures: Dispatcher [employer] Jennifer Diaz RN RN dls Robertshaw, Aaron, PA-C PA-C ar2 Hafner, Jane, RN RN [facility] Anival Pugh RPA-C RPA-Cck7 Areheath, Leonarda Villatoro The chart was reviewed and I authenticate all verbal orders and agree with the evaluation and treatment provided.Attachments: 16:13 [facility] Payment Agreement gjb 09/13 06:00 T-Sheet-- Draft Copy sly Chart Complete MTDD
== END 2016-09-12 18:30 | disposition home or self-care (01) ==
LOC: M ED 14:03
DX: O20.0 Threatened abortion (principal); O10.911 Unspecified pre-existing hypertension complicating pregnancy, first trimester; O09.521 Supervision of elderly multigravida, first trimester; Z3A.01 Less than 8 weeks gestation of pregnancy

== ENCOUNTER 2017-11-09 13:25 | Emergency (ER) | payer OTHER | END 2017-11-09 16:45 | disposition left against medical advice (07) | LOC: M ED 13:25 | DX: Z53.21 Procedure and treatment not carried out due to patient leaving prior to being seen by health care provider (principal) ==